=== PATIENT | male | born 1995 | race Caucasian/White ===

== ENCOUNTER 2019-12-24 15:42 | Emergency (ER) | payer OTHER, SELFPAY ==
--- NOTE | ~2019-12-24 | XR_ITS ---
EXAMINATION: XR foot LT min 3V DATE: 12/24/2019 16:08 INDICATION: Dorsal left foot pain TECHNIQUE: Dorsoplantar, two oblique and lateral views of the left foot were obtained. COMPARISON: None. FINDINGS: Bone alignment is normal. No fracture. 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 Joint spaces are normal. No erosions or periosteal reaction. Soft tissues are unremarkable . IMPRESSION: 1. 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 Reviewed, dictated and finalized at location A. [employer]
[2019-12-24 15:58] VITALS: BP 133/70; PULSE 84; RESP 16; TEMP 36.4; O2SAT 97
--- NOTE | 2019-12-24 15:59 | ED.LOWEXIN ---
HPI - Extremity Injury (Lower) General Chief Complaint: Extremity Injury, Lower Stated Complaint: Left foot and ankle pain Time Seen by Provider: 12/24/19 15:59 Source: patient Mode of arrival: ambulatory Limitations: no limitations History of Present Illness HPI Narrative: Alex Mathew is a 24 yo male with no PMH who comes to express care with L dorsal foot pain. Is unaware what happened last night that caused the pain although told nurse that he slipped and fell Related Data Allergies Allergy/AdvReac Type Severity Reaction Status Date / Time No Known Allergies Allergy Unverified 06/28/18 17:30 Review of Systems Review of Systems: Narrative: CONSTITUTIONAL: Denies fever, chills, sweats. EYES: Denies visual changes, redness, discharge. ENT: Denies rhinorrhea, congestion, sore throat, otalgia. CARDIOVASCULAR: Denies chest pain, palpitations, edema. RESPIRATORY: Denies dyspnea, wheezing, cough GASTROINTESTINAL: Denies abdominal pain, nausea, vomiting, diarrhea. GENITOURINARY: Denies dysuria, hematuria, abnormal discharge SKIN: Denies rash or itching. MUSCULOSKELETAL: Denies acute back pain, pain in L lateral foot NEUROLOGIC: Denies numbness, or focal weakness. PSYCHIATRIC: Denies anxiety or depression. [facility] Family History Family History (Updated 12/24/19 @ 16:24 by Flor Reyes CNP) Other No active medical problems Social History Social History (Updated 12/24/19 @ 16:24 by Flor Reyes CNP) Smoking status: Never smoker Alcohol intake: current Comments At time of signature, I agree with nursing past medical, surgical, social and family history. There is no relevant family history pertinent to the presenting complaint. Exam Narrative: Exam Narrative: GENERAL: This is a well-nourished, well-developed patient, in moderate distress. HEAD: normocephalic, atraumatic. EYES: Sclera clear/white. Vision is grossly intact. EARS: External ears normal. Hearing grossly intact. NOSE: External nose normal with no obvious nasal discharge, nares without redness, no rhinorrhea. THROAT: Mucous membranes moist, NECK: Neck supple, non-tender CARDIOVASCULAR: Regular rate and rhythm without murmurs, gallops, or rubs. RESPIRATORY: Clear to auscultation. Breath sounds equal bilaterally. No wheezes, rales, or rhonchi. GASTROINTESTINAL: Abdomen soft, non-tender, SKIN: warm, intact with no suspicious lesions or rash, good texture and turgor. NEURO: awake, alert, and oriented to person, place and time. There were no obvious focal neurologic abnormalities. Steady gait EXTREMITIES: Normal range of motion. L foot pain rated at 8/10, soft tissue swelling on lateral side of L foot; 2+ pedal pulse. BACK: Nontender without deformity or crepitance. . 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 shown on the x-ray; spoke with patient about following up with orthopedic surgeon to evaluate possible treatment with that should be conservative or more aggressive to stop necrotic degeneration Patient placed in Damian wrap, non-weightbearing; patient given instructions on RICE and also on the use of high-dose ibuprofen and tramadol for pain Vital Signs Vital signs: Vital Signs Temperature 97.5 F L 12/24/19 15:58 Pulse Rate 84 12/24/19 15:58 Respiratory Rate 16 12/24/19 15:58 Blood Pressure 133/70 12/24/19 15:58 Pulse Oximetry 97 12/24/19 15:58 Temperature 97.5 F L 12/24/19 15:58 Pulse Rate 84 12/24/19 15:58 Respiratory Rate 16 12/24/19 15:58 Blood Pressure 133/70 12/24/19 15:58 Pulse Oximetry 97 12/24/19 15:58 MDM - Extremity Injury (Lower) Differential Diagnosis Differential diagnosis: Likely ankle sprain and strain, fracture of toe and other (fracture of metatarsal) Discharge Plan Discharge Clinical Impression: Osteonecrosis Foot sprain Qualifiers: Encounter type: initial encounter Laterality: left Qualified
== END 2019-12-24 17:06 | disposition home or self-care (01) ==
PROVIDERS: Emergency Provider Nurse Practitioner; PCP Internal Medicine
DX: S93.602A Unspecified sprain of left foot, initial encounter (principal); M87.9 Osteonecrosis, unspecified; W01.0XXA Fall on same level from slipping, tripping and stumbling without subsequent striking against object, initial encounter
CPT/HCPCS: 73630; 99213; G0463